=== PATIENT | male | born 1985 | race Caucasian/White ===

== ENCOUNTER 2018-12-16 14:52 | Emergency (ER) | payer OTHER ==
[~2018-12-16] VITALS: Ht 190.5 cm; Wt 120.7 kg
[2018-12-16 15:02] VITALS: Ht 190.5 cm; Wt 120.7 kg
[2018-12-16 17:19] VITALS: BP 124/75
== END 2018-12-16 17:19 | disposition home or self-care (01) ==
LOC: ED 14:52
DX: R07.81 Pleurodynia (principal); Z88.0 Allergy status to penicillin
CPT/HCPCS: J1885